=== PATIENT | female | born 1955 | race Caucasian/White ===

== ENCOUNTER 2025-01-17 10:24 | Outpatient (AMB) | payer MEDICARE, OTHER, SELFPAY ==
--- OUTSIDE RECORDS SUMMARY | 2025-01-17 11:04 | XMS_ITS | Clinical Summary ---
Author Organization [facility] [address] [place] [address] [place] [phone] Phone Care Team Providers Care Diamond Sorter Name Role Phone Yani Hwang MD Primary Care Provider [phone] Allergies Active Allergy Reactions Criticality Noted Date Comments Egg 10/09/2008 Other 10/09/2008 Seasonal allergies Medications acetaminophen (TYLENOL 8 HOUR) 650 mg 8 hr tablet Take 650 mg by mouth every 8 hours as needed. Active levETIRAcetam (KEPPRA) 250 mg tablet Take 2 Tabs by mouth daily. 07/03/2015 Active magnesium oxide 200 mg magnesium tablet Take 1 Tab by mouth daily. 05/10/2014 Active aspirin 81 mg EC tablet Take 81 mg by mouth daily. Active lovastatin (MEVACOR) 40 mg tablet TAKE 1 TABLET BY MOUTH AT BEDTIME 90 tablet 1 06/07/2024 Active glipiZIDE (GLUCOTROL XL) 2.5 mg 24 hr tablet TAKE 1 TABLET BY MOUTH DAILY 90 tablet 2 07/03/2024 Active Active Problems Problem Noted Date Diagnosed Date Type 2 diabetes mellitus wit hout complication, without long-term current use of insulin ([facility] V24, [facility] V28) 08/23/2024 Assessment & Plan (08/23/2024 9:12 AM EDT): Orders: Comprehensive metabolic panel; Future Hemoglobin A1c; Future [place] syndrome 05/22/2024 Dysarthria 02/14/2020 Skin lesion 07/26/2019 Overview (05/22/2024): Last Assessment & Plan: Likely SK, but referred to Derm to evaluate further. She was informed that she should hear back in 1-2 weeks with an appointment date. If not, she should call back to our office and inquire on getting this arranged. She voiced understanding and agreed. Elevated LFTs 08/26/2017 Seizure disorder ([facility] V24, [facility] V28) 07/18 Assessment & Plan (08/23/2024 9:12 AM EDT): Orders: Comprehensive metabolic panel; Future Hemoglobin A1c; Future Impaired glucose tolerance 05/10/2014 CKD (chronic kidney disease) stage 3, GFR 30-59 ml/min ([facility]24, [facility] V28) 08/25/2012 Assessment & Plan (08/23/2024 9:12 AM EDT): Orders: Comprehensive metabolic panel; Future Hemoglobin A1c; Future Diverticulitis of colon without hemorrhage 09/03 Overview (05/22/2024): Incidental finding at colonoscopy 09/03/2010. Hiatal hernia 09/03/2010 Overview (05/22/2024): Small HH at EGD 09/03/2010. Allergic rhinitis 11/17/2006 Hyperlipidemia with target LDL less than 100 09/2006 Overview (05/22/2024): Goal <100 secondary to renal dz IMO update Speech disturbance 11/17/2006 Overview (05/22/2024): IMO update Pain in joint, lower leg 11/17/2006 Immunizations Name Administration Dates Next Due Influenza Quadrivalent, 0.5m l, preservative free (Fluarix; FluLaval; Fluzone) ages 6mo and older (Afluria) 3yo and older 03/22/2019 Influenza trivalent, 0.5mL, preservative free (Fluarix; FluLaval; Fluzone) ages 6mo and older (Afluria) 3 years and older 03/30/2018,07/14/2017,05/06/2016,2014,07/02/2013 PPD Test 03/12/2005 Pneumococcal conjugate 20 va lent (Prevnar 20, PCV 20) 2mo and older 01/13/2023 Td Tetanus diptheria (Tdvax) 7yo and older 03/07/2005 Tdap Tetanus diptheria acell ular pertussis (Boostrix; Adacel) 7yo and older 10/04/2013 Zoster Live 08/25/2017 Surgical History Surgery Date Site/Laterality Comments KNEE SURGERY 02/19 PROCEDURE: HISTORICAL KNEE SURGERY; COMMENT: R KNEE DR. OSCAR MULTIPLE TOOTH EXTRACTIONS PROCEDURE: EACH ADD TOOTH EXTRACTION; COMMENT: WISDOM TEETH KNEE ARTHROSCOPY 1989 PROCEDURE: KS ARTHROSCOPY AID [place] SPINE&/FX KNEE W/O FIXJ; COMMENT: LEFT OVARIAN CYST REMOVAL PROCEDURE: KS OVARIAN CYSTECTOMY UNI/BI; COMMENT: EXP LAP COLONOSCOPY 09/03/2010 PROCEDURE: KS COLONOSCOPY FLX DX W/COLLJ SPEC WHEN PFRMD; COMMENT: diverticulosis ESOPHAGOGASTRODUODENOSCOPY 09/03/2010 PROCEDURE: KS ESOPHAGOGASTRODUODENOSCOPY TRANSORAL DIAGNOSTIC; COMMENT: small hiatal hernia Medical History Medical History Date Comments Allergic rhinitis, cause unspecified 11/17/2006 DX:Allergic rhinitis, cause unspecified OA (osteoarthritis) DX:OA (osteo arthritis); COMMENT: KNEES/CHONDROCALCINOSIS Other speech disturbance 11/17/2006 DX:Othe r speech disturbance Diverticulosis of colon (wit hout mention of hemorrhage) 09/03/2010 DX:Diverticulosis of colon ( without mention of hemorrhage) Hiatal hernia 09/03/2010 DX:Hiatal hernia Renal insufficiency DX:Renal ins ufficiency Foot fracture, left [id number] DX:Foot frac ture, left; COMMENT: NEOS 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 Family History Medical History Relation Name Comments Heart attack Father Heart attack Paternal Grandmother Blindness Neg Hx Breast cancer Neg Hx Cataracts Neg Hx Colon cancer Neg Hx Glaucoma Neg Hx Macular degeneration Neg Hx Ovarian cancer Neg Hx Pancreatic cancer Neg Hx Prostate cancer Neg Hx Strabismus Neg Hx Uterine cancer Neg Hx Relation Name Status Comments Father (Age 66) mi-CABG X 4 Maternal Grandfather Maternal Grandmother Mother (Age 66) UNSURE Paternal Grandfather Paternal Grandmother (Age 70'S) [place] Sister Alive 46 [place] Social History Tobacco Use Types Packs/Day Years Used Date Smoking Tobacco: Never Smokeless Tobacco: Never Tobacco Cessation:Counseling Given: Not Answered Alcohol Use Standard Drinks/Week Comments No 0 (1 standard drink = 0.6 oz pur e alcohol) Comments Unknown Sex and Gender Information Value Date Recorded Sex Assigned at Not on file Legal Sex Female 4:08 PM EST Gender Identity Not on file Sexual Orientation Not on file Obstetrics History Para Term AB IAB SAB Ectopic Multiple Livin g Live Births 0 0 0 Last Filed Vital Signs Vital Sign Reading Time Taken Comments Blood Pressure 136/80 08/23/2024 8:45 AM EDT Pulse 97 08/23/2024 8:45 AM EDT Temperature 35.9 C (96.6 F) 08/23/2024 8:45 AM EDT Respiratory Rate - - Oxygen Saturation 97% 08/23/2024 8:45 AM EDT Inhaled Oxygen Concentration - - Weight 65.3 kg (144 lb) 08/23/2024 8:45 AM EDT Height 162.6 cm (5' 4 ) 02/23/2024 9:29 AM EDT Body Mass Index 24.72 02/23/2024 9:29 AM EDT Plan of Treatment Upcoming Encounters Date Type Department Care Team (Late st Contact Info) Description 02/21/2025 8:15 AM EDT Office Visit Internal Medicine - [place] [address] [facility] [address] [place] [phone] Yani Hwang MD 175 [facility] [address] [place] [phone] 04/13/2025 4:30 PM EDT Office Visit Nephrology - [address] [phone] Volodymyr Lopez MD 100 [facility] [address] [place] [phone] 08/22/2025 7:40 AM EDT Appointment Radiology Department - [address] [phone] Health Maintenance Due Date Last Done Comments COVID-19 Vaccine (#1) 1960 Diabetes: Annual Foot Exam 1965 Diabetes: Annual Retina Eye Exam 1965 Cervical Cancer Screening: HPV 12/18/2010 12/18/2005 RSV Immunization Adult Patients (1 - Risk 60-74 years 1-dose series) 2015 Zoster Vaccines (1 of 2) 10/20/2017 08/25/2017 Social Influencers of Health Screening 05/25/2022 DTaP,Tdap,and Td Vaccines (3 - Td or Tdap) 10/05/2023 10/04/2013, 03/07/2005 Influenza Vaccine (#1) 2025 9, 03/30/2018, 07/14/2017, Additional history exists Diabetes: Blood Sugar Control Test (HGBA1C) 02/23/2025 08/23/2024, 02/23/2024, 02/23/2024 Diabetes: Annual Urine Albumin-Creatinine Ratio (uACR) 03/22/2025 03/22/2024 Diabetes: Annual GFR (Glomerular Filtration Rate) 08/23/2025 08/23/2024, 07/21/2023 Falls Risk Assessment 08/23/2025 08/23/2024 Medicare Annual Wellness Visit 08/23/2025 08/23/2024 Breast Cancer Screening 08/16/2026 08/17/19, 08/11/2023, 08/05/2022, Additional history exists Cholesterol Screening (Lipid Panel) 07/21/2028 07/21/2023 Osteoporosis Screening (Bone Density Screening) 08/05/2032 08/05/2022 Colorectal Cancer Screening: Colonoscopy 09/28/2033 09/29/2023 Hepatitis C Screening Completed 10/04/2013 Pneumococcal Vaccine: 50+ Years Completed 01/13/2023 Depression Screening Completed 08/23/2024 HIB Vaccines Aged Out No longer eligi ble based on patient's age to complete this topic HPV Vaccines Aged Out No longer eligi ble based on patient's age to complete this topic Hepatitis A Vaccines Aged Out No long er eligible based on patient's age to complete this topic Hepatitis B Vaccines Aged Out No long er eligible based on patient's age to complete this topic IPV Vaccines Aged Out No longer eligi ble based on patient's age to complete this topic MMR Vaccines Aged Out No longer eligi ble based on patient's age to complete this topic Meningococcal ACWY Vaccine Aged Out N o longer eligible based on patient's age to complete this topic Meningococcal B Vaccine Aged Out No l onger eligible based on patient's age to complete this topic RSV Immunization Patients Under 20 months Aged Out No longer eligible based on patient's age to complete this topic Varicella Vaccines Aged Out No longer eligible based on patient's age to complete this topic Procedures Procedure Name Priority Date/Time Associated Diagnosis Comments COMPREHENSIVE METABOLIC PANEL Routine 08/23/2024 9:20 AM EDT Stage 3b chronic kidney disease ([facility] V24, [facility] V28) Seizure disorder ([facility] V24, [facility]/H[facility] V28) Type 2 diabetes mellitus without complication, without long-term current use of insulin ([facility] V24, [facility]/HCC V28) HEMOGLOBIN A1C Routine 08/23/2024 9:20 AM EDT Stage 3b chronic kidney disease ([facility]/HCC V24, [facility]/HCC V28) Seizure disorder ([facility] V24, [facility]/HCC V28) Type 2 diabetes mellitus without complication, without long-term current use of insulin ([facility] V24, [facility] V28) MAMMO DIGITAL SCREENING W HERNAN BILAT Routine 08/16/2024 8:17 AM EST Encounter for screening mammogram for breast cancer URINE ALBUMIN CREATININE RATIO Routine 03/22/2024 COLONOSCOPY Routine 09/29/2023 LIPID PANEL Routine 07/21/2023 DXA BONE DENSITY STUDY 1+ SITS AXIAL SKEL Routine 08/05/2022 8:14 AM EST Encounter for general adult medical examination without abnormal findings HEPATITIS C SCREENING Routine 10/04/2013 HPV Routine 12/18/2005 from Last 3 Months or Most Recently Relevant to Health Maintenance Results * Hemoglobin A1c (08/23/2024 9:20 AM EDT) Pathologist [facility] Hemoglobin A1C 6.3 <6.5 % LAB CHEMISTRY METHOD 08/23/2024 9:39 PM EDT [facility] Mean Bld Glu Estim. 134 mg/dL LAB CHEMISTRY METHOD 08/23/2024 9:39 PM EDT [facility] Blood Venous blood specimen / Unknown Venipuncture / Unknown 08/23/2024 9:20 AM EDT 08/23/2024 9:20 AM EDT us Yani Hwang MD LAB BLOOD ORDERABLES Final Res ult [facility] [address] [place] [address], [place] [phone] * (ABNORMAL) Comprehensive metabolic panel (08/23/2024 9:20 AM EDT) [facility] Sodium 141 133 - 145 mmol/L LAB CHEMISTRY METHOD 08/23/2024 3:30 PM [facility] Potassium 3.9 3.5 - 5.5 mmol/L LAB CHEMISTRY METHOD 08/23/2024 3:30 PM [facility] Chloride 105 96 - 110 mmol/L LAB CHEMISTRY METHOD 08/23/2024 3:30 PM T [facility] CO2 29 21 - 32 mmol/L LAB CHEMISTRY METHOD 08/23/2024 3:30 PM T [facility] Anion Gap 7 3 - 11 LAB CHEMISTRY METHOD 08/23/2024 3:30 PM [facility] Glucose 132(H) 70 - 100 mg/dL LAB CHEMISTRY METHOD 08/23/2024 3:30 PM [facility] BUN 26(H) 5 - 25 mg/dL LAB CHEMISTRY METHOD 08/23/2024 3:30 PM EDT [facility] Creatinine 1.82(H) 0.50 - 1.10 mg/dL LAB CHEMISTRY METHOD 08/23/2024 3:30 PM EDT [facility] eGFR 30(L) >=60 mL/min/1. 73m2 LAB CHEMISTRY METHOD 08/23/2024 3:30 PM T [facility] Comment:Calculation based on the Chronic Kidney Disease Epidemiology Collaboration (CKD-EPI) equation refit without adjustment for race. BUN/Creatinine Ratio 14.3 LAB CHEMISTRY METHOD 08/23/2024 3:30 PM EDT [facility] Calcium 9.5 8.5 - 10.5 mg/dL LAB CHEMISTRY METHOD 08/23/2024 3:30 PM [facility] AST (SGOT) 39 10 - 42 unit/L LAB CHEMISTRY METHOD 08/23/2024 3:30 PM [facility] ALT (SGPT) 42 10 - 60 unit/L LAB CHEMISTRY METHOD 08/23/2024 3:30 PM T [facility] Alkaline Phosphatase 130(H) 42 - 121 unit/L LAB CHEMISTRY METHOD 08/23/2024 3:30 PM T [facility] Total Protein 7.2 6.0 - 8.0 g/dL LAB CHEMISTRY METHOD 08/23/2024 3:30 PM [facility] Albumin 3.6 3.2 - 5.0 g/dL LAB CHEMISTRY METHOD 08/23/2024 3:30 PM EDT [facility] Total Bilirubin 0.8 0.0 - 1.4 mg/dL LAB CHEMISTRY METHOD 08/23/2024 3:30 PM [facility] Blood Venous blood specimen / Unknown Venipuncture / Unknown 08/23/2024 9:20 AM EDT 08/23/2024 9:20 AM EDT us Yani Hwang MD LAB BLOOD ORDERABLES Final Res ult [facility] [address] [place] [address], * MG Mammo Digital Screening w Hernan bilat (08/16/2024 8:17 AM EST) Anatomical Region Laterality Modality Breast Bilateral Mammography 08/16/2024 7:06 PM EST Impressions 08/16/2024 7:10 PM EST 1. No mammographic evidence of malignancy 2. Scattered fibroglandular tissue BI-RADS CATEGORY: 2 - BENIGN RECOMMENDATION: Screening bilateral mammogram is recommended in 1 year. Mammo Location: [facility], [address] [place] [address], [id number], . -------- FINAL REPORT -------- Dictated By: Marcos Estrada Dictated Date: 08/16/2024 19:06 ET Assigned Physician: Marcos Estrada Reviewed and Electronically Signed By: Marcos Estrada Signed Date: 08/16/2024 19:10 ET Workstation ID: [id number] Transcribed By: Self Edit Transcribed Date: 08/16/2024 19:06 ET Narrative 08/16/2024 7:10 PM EST A BILATERAL DIGITAL 3D SCREENING MAMMOGRAPHY HISTORY: Routine screening. No family history of breast cancer. COMPARISON: Multiple priors dating back to 07/24/2020 Technique: Bilateral full field digital mammography (3D) was performed using standard CC and MLO projections CAD was used to evaluate this mammogram. FINDINGS: Right: No suspicious masses, groups of microcalcification or areas of architectural distortion identified. Stable typically benign parenchymal asymmetries. Left: No suspicious masses, groups of microcalcification or areas of architectural distortion identified. Stable typically benign parenchymal asymmetries. BREAST DENSITY: B - There are scattered areas of fibroglandular density. Procedure Note Marcos Estrada MD - 08/16/2024 A BILATERAL DIGITAL 3D SCREENING MAMMOGRAPHY HISTORY: Routine screening. No family history of breast cancer. COMPARISON: Multiple priors dating back to 07/24/2020 Technique: Bilateral full field digital mammography (3D) was performedusing standard CC and MLO projections CAD was used to evaluate this mammogram. FINDINGS: Right: No suspicious masses, groups of microcalcification or areas ofarchitectural distortion identified. Stable typically benign parenchymalasymmetries. Left: No suspicious masses, groups of microcalcification or areas ofarchitectural distortion identified. Stable typically benign parenchymalasymmetries. BREAST DENSITY: B - There are scattered areas of fibroglandular density. IMPRESSION: 1. No mammographic evidence of malignancy 2. Scattered fibroglandular tissue BI-RADS CATEGORY: 2 - BENIGN RECOMMENDATION: Screening bilateral mammogram is recommended in 1 year. Mammo Location: [facility], [address] [place] [address], [id number], . -------- FINAL REPORT -------- Dictated By: Marcos Estrada Dictated Date: 08/16/2024 19:06 ET Assigned Physician: Marcos Estrada Reviewed and Electronically Signed By: Marcos Estrada Signed Date: 08/16/2024 19:10 ET Workstation ID: [id number] Transcribed By: Self Edit Transcribed Date: 08/16/2024 19:06 ET Yani Hwang MD IMG BI PROCEDURES Final Result * Urine Albumin Creatinine Ratio (03/22/2024) Pathologist [facility] Urine Albumin Creatinine Ratio abstracted [facility] Provider HEALTH MAINTENANCE Final Result * Colonoscopy (09/29/2023) [facility] Colonoscopy abstracted, no interpretation Anatomical Region Laterality Modality Other [facility] Provider HEALTH MAINTENANCE Final Result * Lipid panel (07/21/2023) [facility] LDL/HDL Ratio 3 0 - 4 Triglycerides 136 0 - 150 mg/dL Cholesterol 143 0 - 200 mg/dL HDL 44 >=40 mg/dL LDL Cholesterol 72 0 - 100 mg/dL Blood Venous blood specimen / Unknown [facility] Provider LAB BLOOD ORDERABLES Ela l Result * DXA BONE DENSITY STUDY 1+ SITS AXIAL SKEL (08/05/2022 8:14 AM EST) Anatomical Region Laterality Modality Bone Densitometr y 07/15/2022 1:54 PM EST Narrative 08/05/2022 12:19 PM EST BONE DENSITY (DEXA) Lumbar Spine T-score is 3.5. (SD relative to 20-29 y/o adult) Z-score is 5.4. (SD relative to age matched peers) This is considered normal by WHO criteria. Left Hip T-score is -0.8. Z-score is 0.9. This is considered normal by WHO criteria. IMPRESSION: This patient is considered to have normal bone density by WHO criteria. The [facility] Department of Internal Medicine recommends using National Osteoporosis Foundation (NOF) guidelines in treatment decisions related to osteoporosis. NOF guidelines suggest considering treatment for postmenopausal women and men aged 50 or older presenting with the following: History of hip or vertebral fracture. T-score = -2.5 (DXA) at the femoral neck, total hip, or spine, after appropriate evaluation to exclude secondary causes. Low bone mass (T-score between -1.0 and -2.5 at the femoral neck or spine) AND a 10-year probability of a hip fracture = 3% OR a 10-year probability of a major osteoporosis-related fracture = 20% based on the [place]-adapted WHO algorithm Please note that all treatment decisions require clinical judgment and consideration of individual patient factors, including patient preferences, co-morbidities, previous drug use, risk factors not captured in the FRAX model (e.g., frailty, falls, vitamin D deficiency, increased bone turnover, interval significant decline in bone density) and possible under- or over-estimation of fracture risk by FRAX. Optional alternative screening schedule based on diomedes Finnegan., [facility] July 04, 2011 for patients with osteopenia (based on hip BMD T-score) is as follows: * advanced osteopenia (T scores -2.00 to -2.49), BMD testing every year * moderate osteopenia (T scores -1.50 to -1.99), BMD testing every 5 years mild osteopenia or normal BMD (T scores -1.50 and higher), BMD testing every 15 years Procedure Note Bella Escobedo MD - 07/21/2023 BONE DENSITY (DEXA) Lumbar Spine T-score is 3.5. (SD relative to 20-29 y/o adult) Z-score is 5.4. (SD relative to age matched peers) This is considered normal by WHO criteria. Left Hip T-score is -0.8. Z-score is 0.9. This is considered normal by WHO criteria. IMPRESSION: This patient is considered to have normal bone density by WHO criteria. The [facility] Department of Internal Medicine recommendsusing National Osteoporosis Foundation (NOF) guidelines in treatment decisions related toosteoporosis. NOF guidelines suggest considering treatment for postmenopausal women and menaged 50 or older presenting with the following: History of hip or vertebral fracture. T-score = -2.5 (DXA) at the femoral neck, total hip, or spine, afterappropriate evaluation to exclude secondary causes. Low bone mass (T-score between -1.0 and -2.5 at the femoral neck or spine)AND a 10-year probability of a hip fracture = 3% OR a 10-year probability of a majorosteoporosis-related fracture = 20% based on the [place]-adapted WHO algorithm Please note that all treatment decisions require clinical judgment andconsideration of individual patient factors, including patient preferences, co- morbidities,previous drug use, risk factors not captured in the FRAX model (e.g., frailty, falls, vitaminD deficiency, increased bone turnover, interval significant decline in bone density) andpossible under- or over-estimation of fracture risk by FRAX. Optional alternative screening schedule based on diomedes Finnegan., [facility] for patients with osteopenia (based on hip BMD T-score) is as follows: * advanced osteopenia (T scores -2.00 to -2.49), BMD testing every year * moderate osteopenia (T scores -1.50 to -1.99), BMD testing every 5years mild osteopenia or normal BMD (T scores -1.50 and higher), BMD testingevery 15 years Yani Hwang MD IM DXA PROCEDURES Final Resul t * Hepatitis C Screening (10/04/2013) [facility] Hepatitis C Screening abstracted Historical Provider HEALTH MAINTENANCE Final Result * Cervical Cancer Screening: HPV (12/18/2005) Cervical Cancer Screening: HPV abstracted, no interpretation Historical Provider HEALTH MAINTENANCE Final Result from Last 3 Months or Most Recently Relevant to Health Maintenance Insurance MEDICARE [facility] Care Teams Diamond Sorter Relationship Specialty Start Date End Date Yani Hwang MD [address] [place] [phone] PCP - General Internal Medicine 12/06/21
--- NOTE | 2025-01-17 11:15 | A.OFFVIS_ITS ---
Intake Visit Reasons: 6 month f/u Allergies No Known Allergies Allergy (Verified 01/17/25 11:16) Medication List - Last Reconciled 01/17/25 by Brittani Barreto CNP aspirin 81 mg PO DAILY glipizide ER 2.5 mg PO DAILY levetiracetam 500 mg PO BID 90 days lovastatin 40 mg PO DAILY HPI Comments Details: 69-year-old woman with underlying h/o speech impediment (ataxic speech) and probably secondartily generalized seizure disorder. In 2013 she was found by her in the bathroom flailing and passed out. Routine EEG was ok. Ambulatory EEG revealed interictal discharges with possible left hemispheric focus. An MRI of brain revealed microvascular ischemic changes. She was doing okay. No seizures. No medication side effects. No falls. No functional impairment. No difficulty eating or drinking. Sleep was okay. [facility] Medical History (Updated 01/17/25 @ 11:18 by Brittani Barreto CNP) Cerebral microvascular disease Speech impediment Ataxia Dysarthria Seizure disorder Review of Systems Const Denies chills, Denies daytime sleepiness, Denies difficulty sleeping, Denies fatigue, Denies fever(s), Denies frequent falls, Denies headache(s), Denies increased appetite, Denies poor appetite, Denies snoring, Denies weakness, Denies weight gain and Denies weight loss Eyes Denies loss of vision ENT Denies vertigo, Denies dizziness and Denies headache(s) Card Denies chest pain at rest, Denies chest pain with activity, Denies syncope, Denies leg edema and Denies palpitations Resp Denies snoring GI Denies constipation, Denies heartburn, Denies diarrhea and Denies nausea Denies urinary frequency, Denies urinary incontinence and Denies urinary urgency Musc Denies abnormal gait, Denies numbness and Denies tingling Skin/Breast Denies dry skin and Denies rash Neuro Denies abnormal gait, Denies vertigo, Denies dizziness, Denies syncope, Denies frequent falls, Denies headache(s), Denies lack of coordination, Denies loss of vision, Denies memory loss, Denies numbness, Denies restless legs, Denies seizure-like activity, Denies tingling, Denies paresthesias, Reports tremor(s) and Denies weakness Psych Denies anxiety, Denies depression, Denies auditory hallucinations, Denies memory loss, Denies visual hallucinations and Denies suicidal ideation Endo Denies fatigue and Denies palpitations Physical Exam Const Other: General Appearance:? normal, in no acute distress. Skin:? no rashes, no significant birthmarks. Heart:? S1, S2 normal, no murmurs. Lungs:? clear anteriorly and posteriorly. Extremities:? no edema. Psych:? alert, oriented, cognitive function intact, cooperative with exam. Neuro Other: Mental Status:?Normal attention, orientation, memory and affect.? Cranial Nerves:?Pupils are equal, round and reactive to light. External occular muscles are intact. Visual vargas are full. Face is symmetrical. Facial sensations are normal. Tongue is midline. Palate elevates symmetrically. Shoulder shrugging is normal. Hearing to bedside conversation is normal. Coordination:?No ataxia,?no titubation.? Gait Exam: Within normal limits. Cerebellar Signs:?Minimal FTN dysmetria. Extrapyramidal System:?No tremor, rigidity with normal facial expressions.? Pronator Drift:?Not present.? Involuntary Movements:?Head tremors noted. Speech:?Moderate cerebellar type speech tremor. Results Reviewed Results Reviewed: CT brain at [facility] in October of 2013: mild bifrontal atrophy MRI brain w/o cont at in October of 2013: few small micro-infarcts, in deep WM, more on the right side and dilated Virchow-Nahid spaces EEG in office in November of 2013: WNL 24 hr EEG in [facility] in 2013: few interictal discharges suggestive of seizure d/o Assessment & Plan Assessment & Plan (1) Seizure disorder: Code(s): G40.909 - Epilepsy, unspecified, not intractable, without status epilepticus Category: Medical Plan: Continue levetiracetam 500mg 1 tablet twice a day. (2) Speech impediment: Code(s): R47.9 - Unspecified speech disturbances Category: Medical (3) Cerebral microvascular disease: Code(s): I67.89 - Other cerebrovascular disease Category: Medical (4) Dysarthria: Code(s): R47.1 - Dysarthria and anarthria Category: Medical Plan . Coding Level of Care Code Est Pt Level 3 (05943) Diagnoses Seizure disorder G40.909 Speech impediment R47.9 Cerebral microvascular disease I67.89 Dysarthria R47.1
== END 2025-01-17 11:24 | disposition home or self-care (01) ==
LOC: HO.HSM 10:24
PROVIDERS: PCP Internal Medicine; Referring Provider Internal Medicine; Visit Provider Registered Nurse
DX: G40.909 Epilepsy, unspecified, not intractable, without status epilepticus (principal); R47.9 Unspecified speech disturbances; I67.89 Other cerebrovascular disease; R47.1 Dysarthria and anarthria
CPT/HCPCS: 99213

== ENCOUNTER → 2025-01-17 10:24 | Outpatient (BNVA) | payer MEDICARE, OTHER, SELFPAY | PROVIDERS: PCP Internal Medicine; Referring Provider Internal Medicine; Visit Provider Registered Nurse | DX: G40.909 Epilepsy, unspecified, not intractable, without status epilepticus (principal); R47.1 Dysarthria and anarthria; R47.9 Unspecified speech disturbances; I67.89 Other cerebrovascular disease; Z79.82 Long term (current) use of aspirin; Z79.84 Long term (current) use of oral hypoglycemic drugs; Z79.899 Other long term (current) drug therapy | CPT/HCPCS: 99212 ==